=== PATIENT | female | born 1970 | race Caucasian/White ===

== ENCOUNTER 2019-04-23 14:10 | Outpatient (CLI) | payer OTHER, SELFPAY ==
--- NOTE | ~2019-04-23 | MMUS_ITS ---
EXAMINATION: MM screen LT diag RT w estela, US axilla RT, US breast RT limited HISTORY: Right axillary lump, pain for 2 weeks TECHNIQUE: ML, MLO and cc full field and right spot 3-D tomosynthesis images were performed and synth the [facility] 2-D images were generated. Rolled medial and rolled lateral craniocaudal views. CAD analysis was submitted and interpreted. High resolution upper outer quadrant right breast and right axillary ultr asound was performed. COMPARISON: None BREAST PARENCHYMAL COMPOSITION: The breasts are heterogeneously dense, which may obscure small masses . FINDINGS: MAMMOGRAPHIC FINDINGS: No suspicious mass or architectural distortion, malignant calcification, skin thickening or retractio n is detected. ULTRASOUND: Several right axillary lymph nodes are noted, measuring 7.7 x 3.8 x 6.6 mm, 8.0 x 7.0 x 7.5 mm and 13 .8 x 8.2 x 10.0 mm. The axillary lymph nodes are circumscribed, with relatively uniform thickness and echogenicity of the cortex. No suspicious right axillary or upper outer quadrant right breast mass i s detected sonographically. IMPRESSION: 1. No mammographic evidence of malignancy 2. Routine annual mammographic screening is recommended. If there is any clinically suspicious palpable mass or node, consider biopsy. BI-RADS Category 2: Benign finding(s). Reviewed, dictated and finalized at location A. ER OPERATOR IMPRESSION: 1. No mammographic evidence of malignancy 2. Routine annual mammographic screening is recommended. If there is any clinically suspicious palpable mass or node, consider biopsy. BI-RADS Category 2: Benign finding(s). IMPRESSION: 1. No mammographic evidence of malignancy 2. Routine annual mammographic screening is recommended. If there is any clinically suspicious palpable mass or node, consider biopsy. BI-RADS Category 2: Benign finding(s).
== END 2019-04-23 14:11 | disposition home or self-care (01) ==
PROVIDERS: PCP Internal Medicine; Visit Provider Internal Medicine
DX: R59.0 Localized enlarged lymph nodes (principal); Z12.31 Encounter for screening mammogram for malignant neoplasm of breast
CPT/HCPCS: 76642; 76882; 77063; 77065; 77067

== ENCOUNTER 2020-02-10 09:23 | Emergency (ER) | payer OTHER, SELFPAY ==
[2020-02-10 09:35] VITALS: BP 138/73; PULSE 65; RESP 12; TEMP 36.7; O2SAT 100
[2020-02-10 09:39] VITALS: BP 138/73; PULSE 65; RESP 12; TEMP 36.7; O2SAT 100
--- NOTE | 2020-02-10 09:41 | ED.GENADULT ---
HPI - General Adult General Chief complaint: Back Pain/Injury Stated complaint: Lower Back Pain Time Seen by Provider: 02/10/20 09:48 Source: patient and RN notes reviewed Mode of arrival: ambulatory Limitations: no limitations History of Present Illness HPI narrative: 49-year-old female presents with complaints of right lower back pain with right radiating leg pain for 1 day. Samantha says she arise on 02/09/2020 with right lower back pain that radiated to right buttocks, right lateral leg into anterior right thigh. RT leg with intermittent buckling. Housekeeping and gift wrapping prior to increase back pain. History of back pain and spinal surgery (L4-L5). She was prescribed a Medrol Dosepak per Telehealth doctor. Combination pill of Tylenol and Ibuprofen without relief. Denies new injuries or falls. Denies numbness or tingling. Denies fever or chills. No upper or lower extremity pain or weakness. Exacerbating factors consist of prolong standing, sitting, and bending. Denies nausea, vomiting, or abdominal pain. Tolerating po intake well. Denies unusual problems urinating or having a bowel movement, LBM this am per patient and normal for her. History of loose bowel movements. No flank pain or hematuria or dysuria. The patient reports she have not been diagnosed with COVID-19. The patient reports she is not waiting for the results of a COVID-19 lab test. The patient reports she do not have chills, weakness, or fatigue. The patient reports she do not have a new or worsening cough or shortness of breath. Denies chest pain. The patient reports she do not have any rhinorrhea, congestion, sore throat, loss of taste, and diarrhea. Denies recent traveling. Denies concerns for COVID-19 or exposures been home with limited outdoor exposure except for essential household needs, work, and return home. At this time, patient is not suspected of having COVID-19. Some parts of this dictation were generated by voice recognition software and may contain typographical and/or grammatical inaccuracies. Related Data Home Medications Medication Instructions Recorded Confirmed buspirone 10 mg PO BID 02/10/20 02/10/20 diltiazem HCl 120 mg PO DAILY 02/10/20 02/10/20 ergocalciferol (vitamin D2) 50,000 unit PO WEEKLY 02/10/20 02/10/20 [Vitamin D2] lorazepam 0.5 mg PO BID PRN 02/10/20 02/10/20 methylprednisolone 4 mg PO DIRECTED 02/10/20 02/10/20 metoprolol succinate 100 mg PO DAILY 02/10/20 02/10/20 venlafaxine 150 mg PO DAILY 02/10/20 02/10/20 Allergies Allergy/AdvReac Type Severity Reaction Status Date / Time acetaminophen AdvReac Hallucinati Verified 02/10/20 09:37 [From Tylenol-Codeine #3] ng codeine AdvReac Hallucinati Verified 02/10/20 09:37 [From Tylenol-Codeine #3] ng Review of Systems Review of Systems: Narrative: CONSTITUTIONAL: Denies fever, chills, sweats. EYES: Denies visual changes, redness, discharge. ENT: Denies rhinorrhea, congestion, sore throat, otalgia. CARDIOVASCULAR: Denies chest pain, palpitations, edema. RESPIRATORY: Denies dyspnea, wheezing, cough. GASTROINTESTINAL: Denies abdominal pain, nausea, vomiting, diarrhea. GENITOURINARY: Denies dysuria, hematuria, abnormal discharge. SKIN: Denies rash or itching. MUSCULOSKELETAL: Complains of right lower back pain that radiated to right buttocks, right lateral leg into anterior right thigh. Denies joint pain or myalgia. NEUROLOGIC: Denies numbness or focal weakness. PSYCHIATRIC: Denies anxiety or depression. All systems reviewed & are unremarkable except as noted in HPI and below PMFSH Past Medical History Medical History (Updated 02/10/20 @ 23:15 by SOCO Mccain) Anxiety delivery delivered Degenerative disc disease Diabetes Hypertension Loose bowel movement PVCs (premature ventricular contractions) Surgical History Surgical History (Updated 02/10/20 @ 10:17 by SOCO Mccain) H/O section X1, 1992 Hi
[2020-02-10] MEDS: KETOROLAC (*BKC) 60 MG/2 ML VIAL IM (10:08)
== END 2020-02-10 10:24 | disposition home or self-care (01) ==
PROVIDERS: Emergency Provider Nurse Practitioner Family; PCP Internal Medicine
DX: M54.41 Lumbago with sciatica, right side (principal); Z98.84 Bariatric surgery status; I10 Essential (primary) hypertension; E11.9 Type 2 diabetes mellitus without complications; F41.9 Anxiety disorder, unspecified
CPT/HCPCS: 96372; 99213; G0463; J1885

== ENCOUNTER → 2020-03-13 | Outpatient (CLI) | payer OTHER, SELFPAY ==
--- NOTE | ~2020-03-13 | MR_ITS ---
EXAMINATION: MR lumbar spine wo con DATE: 03/13/2020 14:48 INDICATION: Low back pain. Radiculopathy. TECHNIQUE: Magnetic resonance imaging (MRI) of the lumbar spine was performed without intravenous con trast. Sequences included sagittal T2-weighted FSE, sagittal T2-weighted FS FSE, sagittal T1-weighted FSE, and axial T2-weighted FSE. COMPARISON: 05/21/2017 FINDINGS: Alignment is normal. L4-L5 anterior and posterior spinal fusion with metallic magnetic field artifact associated with bone graft cages at the disc space and a left-sided vertical jamie and pedicle screw f ixation. Is also been a left-sided L4-L5 laminectomy. Vertebral body heights are normal. Unchanged la rge T1 hyperintense hemangiomas at L4 and S1. Mild to moderate disc height loss at L5-S1. Mild disc d esiccation and minimal disc height loss at L3-L4. The conus medullaris terminates at L2. There is nor mal signal in the caudal spinal cord. Paravertebral soft tissues are unremarkable. The following disc levels are specifically discussed: T12-L1: Disc is minimally bulging. There is mild bilateral facet joint osteoarthritis. There is no ne ural foraminal stenosis. There is no central canal stenosis. L1-L2: Disc is minimally bulging. There is mild to moderate bilateral facet joint osteoarthritis. The re is no neural foraminal stenosis. There is no central canal stenosis. L2-L3: Disc is minimally bulging. There is mild hypertrophy of the ligamentum flavum. There is mild to moderate bilateral facet joint osteoarthritis. There is no neural foraminal stenosis. There is min imal central canal stenosis. L3-L4: Disc is mildly bulging. There is hypertrophy of the ligamentum flavum. There is moderate bilat eral facet joint osteoarthritis. There is mild bilateral neural foraminal stenosis. There is mild eri tral canal stenosis. L4-L5: Discectomy and anterior fusion procedure. There is also been prior left-sided posterior spinal fusion procedure with vertical jamie and pedicle screw fixation. There is mild to moderate right facet joint osteoarthritis. There is mild bilateral neural foraminal stenosis. Assessment on the left is s omewhat limited by some spatial distortion resulting from the magnetic field artifact. There is no ce ntral canal stenosis with left posterior decompression. L5-S1: Annular fissure and asymmetric to the right mild disc bulge. There is moderate bilateral facet joint osteoarthritis. There is mild to moderate left and mild right neural foraminal stenosis. There is minimal central canal stenosis with mild narrowing of the left and right lateral recesses. IMPRESSION: 1. Negligible progression of mild to moderate lumbar spondylosis. Reviewed, dictated and finalized at location B. HOLE MACHINE OPERATOR
== END | disposition home or self-care (01) ==
DX: M47.27 Other spondylosis with radiculopathy, lumbosacral region (principal); M48.07 Spinal stenosis, lumbosacral region; M47.25 Other spondylosis with radiculopathy, thoracolumbar region; M48.05 Spinal stenosis, thoracolumbar region
CPT/HCPCS: 72148

== ENCOUNTER 2020-04-01 15:25 | Observation (INO) | payer OTHER, SELFPAY ==
--- NOTE | ~2020-04-01 | CT_ITS ---
EXAMINATION: CT abdomen pelvis w con DATE: 04/01/2020 17:42 INDICATION: Epigastric pain TECHNIQUE: Computed tomography (CT) of the abdomen and pelvis was performed with 100 mL Omnipaque-350 intravenous contrast. Automated exposure control and iterative reconstruction technique were employe d. The dose-length product was 423.29 mGy-cm. COMPARISON: None FINDINGS: Lung bases are clear. Heart size is normal. No pericardial or pleural effusion. Postoperative change of prior gastric bypass procedure. Cholecystectomy clips the gallbladder fossa. 6 mm low-attenuation likely cyst or hemangioma at the caudal aspect of the right hepatic lobe. Spleen, pancreas and bilate ral adrenal glands are normal. Peripheral subcentimeter cysts at the bilateral kidneys. Normal append ix. No bowel obstruction. Moderate to large amount of stool scattered throughout the colon. Bladder, anteverted uterus and bilateral adnexa are unremarkable. No free intraperitoneal gas or fluid. No pat hologically enlarged abdominal or pelvic lymphadenopathy. Instrumented anterior and posterior spinal fusion at L4-L5 with interbody bone graft cages and left-sided vertical jamie and pedicle screw fixatio n. IMPRESSION: 1. No acute intra-abdominal/pelvic process. Reviewed, dictated and finalized at location A. CADENCE ANALYST
[2020-04-01 15:40] VITALS: BP 130/75; PULSE 60; RESP 18; TEMP 36.8; O2SAT 100
--- NOTE | 2020-04-01 15:43 | ED.ABDPAIN ---
HPI - Abdominal Pain General Chief Complaint: Abdominal Pain Stated Complaint: abdominal pain Source: patient and RN notes reviewed Mode of arrival: ambulatory Limitations: no limitations History of Present Illness MD elicited complaint: abdominal pain Pertinent past history: none Onset (ago): day(s) (1) Pain Consistency: intermittent Location: epigastric Severity: moderate Quality: sharp Radiation: none Migration to: no migration Exacerbating factors: eating Relieving factors: nothing Associated symptoms: denies other symptoms Treatments prior to arrival: other (tylenol) Related Data Patient : No Home Medications Medication Instructions Recorded Confirmed buspirone 10 mg PO BID 02/10/20 04/01/20 diltiazem HCl 120 mg PO DAILY 02/10/20 04/01/20 metoprolol succinate 150 mg PO DAILY 02/10/20 04/01/20 venlafaxine 150 mg PO DAILY 02/10/20 04/01/20 Allergies Allergy/AdvReac Type Severity Reaction Status Date / Time codeine AdvReac Hallucinati Verified 02/10/20 09:37 [From Tylenol-Codeine #3] ng Review of Systems Review of Systems: All systems reviewed & are unremarkable except as noted in HPI and below Constitutional: Constitutional: Denies chills and Denies fever(s) ENT: Reports system reviewed and no additional complaints, except as documented Cardiovascular: Cardiovascular: Reports no additional cardiovascular complaints Respiratory: Respiratory: Reports no additional respiratory complaints Gastrointestinal: Gastrointestinal: Reports as per HPI, Reports diarrhea ( loose stools only), Reports nausea and Denies vomiting Musculoskeletal: Musculoskeletal: Reports no additional musculoskeletal complaints Neurologic: Reports system reviewed and no additional complaints, except as documented Psychiatric: Psychiatric: Reports no additional psychiatric complaints Endocrine: Endocrine: Reports no additional endocrine complaints [facility] Past Medical History Medical History Anxiety delivery delivered Degenerative disc disease Diabetes Hypertension Loose bowel movement PVCs (premature ventricular contractions) Surgical History Surgical History H/O section X1, 1992 History of cholecystectomy History of endometrial ablation History of gastric bypass Due to obesity and comorbidity issues History of spinal surgery L4-L5 in 2015 Family History Family History Father Hypertension Heart disease Diabetes mellitus Black lung disease Worked in the [employer] Smoker Mother Asthma Atrial fibrillation Social History Social History Smoking status: Never smoker Tobacco type: cigarettes Second hand tobacco smoke exposure: No Alcohol intake: former Substance use: never Substance use type: marijuana Other substance usage details: rarely Additional living arrangements comments: significant other Gender identity (if verbalized by the patient): Female Sexual Orientation (if Verbalized by the Patient): Straight or Heterosexual Spiritual care concerns: No Exam Const: General: healthy appearing and no acute distress Nutritional Appearance: well nourished Orientation/consciousness: patient oriented x3 Other: female nurse in room during examination. HENMT: Head: normal to inspection Ears: external ears normal Eyes: Conjunctivae: conjunctivae normal Pupils: Equal, round and reactive pupils present EOM: EOMs intact bilaterally Neck: Neck: normal visual inspection Resp: Effort & Inspection: normal respiratory effort Auscultation: clear to auscultation bilaterally Cardio: Rate: regular rate Rhythm: regular rhythm GI: GI Palp: Yes Soft to palpation, Yes Tenderness to palpation present (GI) ( Epigastric moderate), No Guarding due t
[2020-04-01] MEDS: MAG HYDROX/ALUMINUM HYD/SIMETH 30 ML, PHENobarb/HYOSCY/ATROPINE/SCOP 32.4 MG, LIDOCAINE... PO (16:22)
--- NOTE | 2020-04-01 16:41 | PC.NURSE ---
pt reports no relief from gi cocktail. edp aware.
[2020-04-01] MEDS: PANTOPRAZOLE SODIUM IV 40 MG VIAL IV PUSH (16:50)
[2020-04-01 17:02] LABS: Basophils Absolute Auto 0.06 K/mm3 (0.00-0.10); Basophils Percent Auto 0.6 % (0.0-1.0); Eosinophils Absolute Auto 0.13 K/mm3 (0.02-0.50); Eosinophils Percent Auto 1.2 % (1.0-6.0); Hematocrit 35.9 % (35.0-49.0); Hemoglobin 12.4 g/dL (12.0-15.0); Immature Granulocyte Absolute 0.04 K/mm3 (0.00-0.00); Immature Granulocyte Percent A 0.4 % (0.0-0.0); Lymphocytes Absolute Auto 3.38 K/mm3 (1.10-4.50); Lymphocytes Percent Auto 31.1 % (18.0-42.0); Mean Corpuscular HGB Conc 34.5 g/dL (32.0-36.0); Mean Corpuscular Hemoglobin 29.7 pg (27.0-31.0); Mean Corpuscular Volume 85.9 fL (78.0-102.0); Mean Platelet Volume 8.9 fl (9.2-11.8); Monocytes Percent Auto 6.4 % (2.0-11.0); Neutrophils Absolute Auto 6.6 K/mm3 (1.7-7.2); Neutrophils Percent Auto 60.3 % (50.0-70.0); Platelet Count Result 306 K/mm3 (150-420); Red Blood Count 4.18 M/mm3 (4.20-5.40); Red Cell Distribution Width 12.1 % (11.6-14.4); White Blood Count 10.9 K/mm3 (4.8-10.8)
[2020-04-01 17:17] LABS: Alanine Aminotransferase 189 U/L (14-59); Albumin Level 3.8 g/dL (3.4-5.0); Alkaline Phosphatase 90 U/L (46-116); Anion Gap 8 mmol/L (8-16); Aspartate Amino Transferase 223 U/L (15-37); Bilirubin,Total 0.5 mg/dL (0.00-1.00); Blood Urea Nitrogen 19 mg/dL (7-18); Calcium 9.1 mg/dL (8.5-10.1); Carbon Dioxide 29 mmol/L (21-32); Chloride 104 mmol/L (98-108); Estimated CRCL calculation 81 ml/min; Estimated Glomerular Filt Rate > 60; Glucose 99 mg/dL (70-99); Lipase 1017 U/L (73-393); Osmolality Calculated 294 mOsm/kg (285-295); Potassium 4.5 mmol/L (3.5-5.1); Sodium 141 mmol/L (136-145)
[2020-04-01 17:20] LABS: Lactic Acid Reflex 1.2 mmol/L (0.4-2.0)
[2020-04-01 17:29] LABS: SPREG INTERNAL CONTROL Positive; Serum Qual hCG Negative
[2020-04-01 17:42] LABS: CRP 0.3 mg/dL (0.0-0.9)
[2020-04-01 17:43] LABS: Amylase 85 U/L (25-115)
[2020-04-01 17:47] LABS: Triglycerides 169 mg/dL (0-150)
[2020-04-01] MEDS: DEXTROSE 5%/0.45% SOD CHL 1,000 ML 150 ML IV CONT ×2 (17:50→23:58)
[2020-04-01 17:54] VITALS: BP 112/59; PULSE 68; RESP 16; O2SAT 98
[2020-04-01 18:22] LABS: Add Urine Microscopic? YES; Appearance Urine Clear (Clear); Bilirubin Urine Negative (Negative); Blood Urine Negative (Negative); Color Urine Yellow (Yellow); Glucose Urine UA Negative (Negative); Ketones Urine Negative (Negative); Leukocyte Esterase Ur Negative LEU/UL (Negative); Nitrate Urine Negative (Negative); Protein Urine Negative (Negative)
[2020-04-01 18:27] LABS: Squamous Epithelial Cell Urine Few /hpf (Few)
[2020-04-01 19:00] VITALS: BMI 26.4
--- NOTE | 2020-04-01 19:00 | ADMGEN ---
This patient, Samantha Mosqueda, was admitted to 2nd Floor Room 205-1. Patient oriented to hospital policies and general routines including ID bracelet, bed and alarms, visiting hours, pain management, procedures, bathroom and other care routines, personal items, smoking policy, room service/diet, and visiting hours. Information on how to activate the Rapid Response Team has been discussed. Patient are encouraged to report perceived risks to care and to ask questions if they do not understand what they are told or what they should do.
[2020-04-01] MEDS: MORPHINE SULFATE (*CRX) 2 MG/ML INJ IV PUSH ×2 (19:15→23:54)
[2020-04-01 22:59] VITALS: BP 116/71; PULSE 61; RESP 18; TEMP 37; O2SAT 99
[2020-04-02] VITALS: BP 98/63; PULSE 54; RESP 18; TEMP 36.2; O2SAT 98
[2020-04-02] MEDS: MORPHINE SULFATE (*CRX) 2 MG/ML INJ IV PUSH ×2 (04:19→12:46)
[2020-04-02 05:47] LABS: Alanine Aminotransferase 435 U/L (14-59); Albumin Level 3.3 g/dL (3.4-5.0); Alkaline Phosphatase 105 U/L (46-116); Anion Gap 8 mmol/L (8-16); Aspartate Amino Transferase 269 U/L (15-37); Bilirubin,Total 0.6 mg/dL (0.00-1.00); Blood Urea Nitrogen 12 mg/dL (7-18); Calcium 8.4 mg/dL (8.5-10.1); Carbon Dioxide 30 mmol/L (21-32); Chloride 104 mmol/L (98-108); Estimated CRCL calculation 95 ml/min; Estimated Glomerular Filt Rate > 60; Glucose 101 mg/dL (70-99); Lipase 131 U/L (73-393); Osmolality Calculated 293 mOsm/kg (285-295); Potassium 3.9 mmol/L (3.5-5.1); Sodium 142 mmol/L (136-145); Total Protein 6.2 g/dL (6.4-8.2)
[2020-04-02] MEDS: DEXTROSE 5%/0.45% SOD CHL 1,000 ML 150 ML IV CONT ×3 (06:19→19:09)
[2020-04-02 07:49] VITALS: BP 102/52; PULSE 50; RESP 16; RESP 18; TEMP 36.4; O2SAT 99
--- NOTE | 2020-04-02 08:00 | PM.IMHP ---
H&P: HPI History of Present Illness Date/Time: 04/02/20 08:00 <KAREL Byers - Last Filed: 04/02/20 12:26> Chief Complaint: Abdominal pain <KAREL Byers - Last Filed: 04/02/20 12:26> Narrative: Samantha Mosqueda is a 50 year old female female that presented to urgent care with epigastric pain. According to patient she has been having intermittent abdominal pain for several weeks that intensified on Friday and became unbearable Friday. Patient notes that she did go to a restaurant with her and have fried chicken and fried pickles at approximately 12:00 and started developing pain since 2:00. She also had nausea no vomiting she noted that she has a history of soft stool but her stool became diarrhea. Patient has not had any past pancreatitis. On admission her WBCs was 10.9,AST 223, ALT 189, triglycerides 169, lipase 1017 all other labs within normal limits, CT of the abdomen and pelvis no acute findings. This a.m. patient notes that her abdominal pain has improved, her nausea has also improved. We will advance her diet to a clear liquid diet today to see how well she tolerates that and do a repeat lipase. The patient denies SOB, CP, palpitation, extremity numbness, lightheadedness, dizziness, constipation, diarrhea, chills, or fever. Disposition: Patient will discharge home with This document was completed by using [employer] Direct speech recognition software, therefore generation technician variances may occur. Despite proofreading, typographical errors may also occur. <KAREL Byers - Last Filed: 04/02/20 12:26> Review of Systems Review of Systems: All systems reviewed & are unremarkable except as noted in HPI and below (10 point system review) <KAREL Byers - Last Filed: 04/02/20 12:26> ON LICENSE OF [facility] Past Medical History Medical History: Medical History (Updated 04/02/20 @ 08:09 by KAREL Byers) Anxiety Degenerative disc disease Diabetes Hypertension Loose bowel movement PVCs (premature ventricular contractions) <KAREL Byers - Last Filed: 04/02/20 12:26> Surgical History Surgical History: Surgical History H/O section X1, 1992 History of cholecystectomy History of endometrial ablation History of gastric bypass Due to obesity and comorbidity issues History of spinal surgery L4-L5 in 2015 <KAREL Byers - Last Filed: 04/02/20 12:26> Family History Family History: Family History Father Hypertension Heart disease Diabetes mellitus Black lung disease Worked in the [employer] Smoker Mother Asthma Atrial fibrillation <KAREL Byers - Last Filed: 04/02/20 12:26> Social History Social History: Social History Smoking status: Never smoker Tobacco type: cigarettes Second hand tobacco smoke exposure: No Alcohol intake: former Substance use: never Substance use type: marijuana Other substance usage details: rarely Additional living arrangements comments: significant other Gender identity (if verbalized by the patient): Female Sexual Orientation (if Verbalized by the Patient): Straight or Heterosexual Spiritual care concerns: No <KAREL Byers - Last Filed: 04/02/20 12:26> Meds Home Medications and Allergies Home medications: Home Medications Medication Instructions Recorded Confirmed Type buspirone 10 mg PO BID 02/10/20 04/01/20 History diltiazem HCl 120 mg PO DAILY 02/10/20 04/01/20 History metoprolol succinate 150 mg PO DAILY 02/10/20 04/01/20 History venlafaxine 150 mg PO DAILY 02/10/20 04/01/20 History <KAREL Byers - Last Filed: 04/02/20 12:26> Allergies/Adverse reactions: Allergies Allergy/AdvReac Type Severity Reaction Status Luis Felipe
[2020-04-02] MEDS: VENLAFAXINE HCL XR 75 MG CAP.ER.24H 150 MG PO (08:45)
[2020-04-02] MEDS: busPIRone HCL 5 MG TABLET 10 MG PO ×2 (08:45→17:16)
[2020-04-02 08:50] LABS: Hematocrit 33.8 % (35.0-49.0); Hemoglobin 11.6 g/dL (12.0-15.0); Mean Corpuscular HGB Conc 34.3 g/dL (32.0-36.0); Mean Corpuscular Hemoglobin 29.7 pg (27.0-31.0); Mean Corpuscular Volume 86.7 fL (78.0-102.0); Mean Platelet Volume 9.6 fl (9.2-11.8); Platelet Count Result 284 K/mm3 (150-420); Red Cell Distribution Width 12.5 % (11.6-14.4); White Blood Count 6.2 K/mm3 (4.8-10.8)
[2020-04-02] MEDS: HYDROcodone/acetaminophen (*CRX) 5-325 MG TABLET 1 TAB PO ×2 (09:46→18:37)
[2020-04-02] MEDS: PANTOPRAZOLE SOD SESQUIHYDRATE 20 MG TAB PO (09:47)
[2020-04-02 16:45] VITALS: BP 118/70; PULSE 61; RESP 18; TEMP 37; O2SAT 99
--- NOTE | 2020-04-02 22:00 | PC.NURSE ---
Patient reports epigastric pain is down to a 3 @ this time and denies any other pain/complaints/needs. Call light in reach.
[2020-04-02 23:44] VITALS: BP 105/62; PULSE 58; RESP 18; TEMP 36.3; O2SAT 98
[2020-04-03] MEDS: DEXTROSE 5%/0.45% SOD CHL 1,000 ML 150 ML IV CONT (01:35)
--- NOTE | 2020-04-03 01:40 | PC.NURSE ---
Patient says her epigastric pain is almost completely gone, rating it a 1 @ this time. Denies need for pain medicine. Denies any other pain/complaints/needs @ this time. Call light in reach.
[2020-04-03 05:28] LABS: Hemoglobin 11.4 g/dL (12.0-15.0); Mean Corpuscular HGB Conc 34.5 g/dL (32.0-36.0); Mean Corpuscular Hemoglobin 29.8 pg (27.0-31.0); Mean Corpuscular Volume 86.2 fL (78.0-102.0); Mean Platelet Volume 8.8 fl (9.2-11.8); Platelet Count Result 245 K/mm3 (150-420); Red Blood Count 3.83 M/mm3 (4.20-5.40); Red Cell Distribution Width 12.1 % (11.6-14.4); White Blood Count 5.2 K/mm3 (4.8-10.8)
[2020-04-03 05:57] LABS: Anion Gap 5 mmol/L (8-16); Blood Urea Nitrogen 5 mg/dL (7-18); Carbon Dioxide 31 mmol/L (21-32); Chloride 106 mmol/L (98-108); Estimated CRCL calculation 106 ml/min; Estimated Glomerular Filt Rate > 60; Lipase 91 U/L (73-393); Sodium 142 mmol/L (136-145)
[2020-04-03 05:58] LABS: Alanine Aminotransferase 274 U/L (14-59); Albumin Level 3.2 g/dL (3.4-5.0); Aspartate Amino Transferase 93 U/L (15-37); Bilirubin,Total 0.6 mg/dL (0.00-1.00); Calcium 8.4 mg/dL (8.5-10.1); Glucose 106 mg/dL (70-99); Osmolality Calculated 291 mOsm/kg (285-295)
[2020-04-03 05:59] LABS: Alkaline Phosphatase 94 U/L (46-116)
[2020-04-03 07:47] VITALS: BP 134/57; PULSE 59; RESP 18; TEMP 36.7; O2SAT 100
--- NOTE | 2020-04-03 08:07 | P.DS_ITS ---
DS: Admitting Diagnosis Admitting Diagnosis Admitting Diagnosis: Pancreatitis <Edenilson CrainKAREL Amaral - Last Filed: 04/03/20 10:18> DS: Discharge Diagnosis Discharge Diagnosis (1) Elevated liver enzymes: Code(s): R74.8 - Abnormal levels of other serum enzymes <Edenilson DoeKAREL - Last Filed: 04/03/20 10:18> Status: Acute <Edenilson DoeKAREL - Last Filed: 04/03/20 10:18> Assessment and Plan: * [id number]-->269-->93, [id number]-->435-->274, improving * Avoid hepatotoxic agents * Will need to follow-up with her primary care physician <KATHERINE Byers - Last Filed: 04/03/20 10:18> (2) Diabetes: Code(s): E11.9 - Type 2 diabetes mellitus without complications <KAREL Byers - Last Filed: 04/03/20 10:18> Status: Inactive <Edenilson CrainKAREL Amaral - Last Filed: 04/03/20 10:18> Assessment and Plan: * Blood sugar stable * It does not appear that patient is on any home medication * <Edenilson ParasKAREL Amaral - Last Filed: 04/03/20 10:18> (3) PVCs (premature ventricular contractions): Code(s): I49.3 - Ventricular premature depolarization <KATHERINE Byers - Last Filed: 04/03/20 10:18> Status: Inactive <Edenilson ParasKAERL Amaral - Last Filed: 04/03/20 10:18> Assessment and Plan: * Stable * Continue Cardizem did decrease metoprolol due to bradycardia and soft blood pressure * Follow-up primary care physician <KAREL Byers - Last Filed: 04/03/20 10:18> (4) Loose bowel movement: Code(s): R19.5 - Other fecal abnormalities <KAREL Byers - Last Filed: 04/03/20 10:18> Status: Inactive <KAREL Byers - Last Filed: 04/03/20 10:18> Assessment and Plan: * Patient has a history of loose bowel <AnantKAREL Gifford - Last Filed: 04/03/20 10:18> (5) Hypertension: Code(s): I10 - Essential (primary) hypertension <Anantrobb ParasKAREL Amaral - Last Filed: 04/03/20 10:18> Status: Inactive <SOCO ByersFosterAakash - Last Filed: 04/03/20 10:18> Assessment and Plan: * Blood pressure stable patient did not receive Cardizem or metoprolol as inpatient * Metoprolol and Cardizem on hold for now due to a soft blood pressure and bradycardia * Patient discharged home with decrease in metoprolol patient discharged with 37.5 mg instead of 150 mg daily * Patient instructed to take her blood pressure reading and document and give results to primary care physician for further adjustment * <KAREL Byers - Last Filed: 04/03/20 10:18> (6) Degenerative disc disease: Status: Inactive <SOCO ByersFosterAakash - Last Filed: 04/03/20 10:18> Assessment and Plan: * Continue pain medication <SOCO ByersFosterAakash - Last Filed: 04/03/20 10:18> (7) Anxiety: Code(s): F41.9 - Anxiety disorder, unspecified <KAREL Byers - Last Filed: 04/03/20 10:18> Status: Inactive <SOCO ByersFosterAakash - Last Filed: 04/03/20 10:18> Assessment and Plan: * Continue venlafaxine and Wellbutrin <SOCO ByersFosterAakash - Last Filed: 04/03/20 10:18> DS: Summary Hospital Course Reason for hospitalization: Pancreatitis <KAREL Byers - Last Filed: 04/03/20 10:18> Hospital Course: Samantha Mosqueda is a 50 year old female female that presented to ED with epigastric pain. According to patient she had intermittent abdominal pain for several weeks that intensified on Friday and became
--- NOTE | 2020-04-03 08:07 | PM.DS ---
DS: Admitting Diagnosis Admitting Diagnosis Admitting Diagnosis: Pancreatitis <Edenilson CrainKAREL Amaral - Last Filed: 04/03/20 10:18> DS: Discharge Diagnosis Discharge Diagnosis (1) Elevated liver enzymes: Code(s): R74.8 - Abnormal levels of other serum enzymes <Edenilson DoeKAREL - Last Filed: 04/03/20 10:18> Status: Acute <Edenilson DoeKAREL - Last Filed: 04/03/20 10:18> Assessment and Plan: [id number]-->269-->93, [id number]-->435-->274, improving Avoid hepatotoxic agents Will need to follow-up with her primary care physician <KAREL Byers - Last Filed: 04/03/20 10:18> (2) Diabetes: Code(s): E11.9 - Type 2 diabetes mellitus without complications <KAREL Byers - Last Filed: 04/03/20 10:18> Status: Inactive <Anantrobb CrainKAREL Amaral - Last Filed: 04/03/20 10:18> Assessment and Plan: Blood sugar stable It does not appear that patient is on any home medication <KAREL Byers - Last Filed: 04/03/20 10:18> (3) PVCs (premature ventricular contractions): Code(s): I49.3 - Ventricular premature depolarization <KAREL Byers - Last Filed: 04/03/20 10:18> Status: Inactive <Edenilson ParasKAREL Amaral - Last Filed: 04/03/20 10:18> Assessment and Plan: Stable Continue Cardizem did decrease metoprolol due to bradycardia and soft blood pressure Follow-up primary care physician <KAREL Byers - Last Filed: 04/03/20 10:18> (4) Loose bowel movement: Code(s): R19.5 - Other fecal abnormalities <KAREL Byers - Last Filed: 04/03/20 10:18> Status: Inactive <KAREL Byers - Last Filed: 04/03/20 10:18> Assessment and Plan: Patient has a history of loose bowel <Edenilson Doe KAREL - Last Filed: 04/03/20 10:18> (5) Hypertension: Code(s): I10 - Essential (primary) hypertension <Edenilson Doe KAREL - Last Filed: 04/03/20 10:18> Status: Inactive <Edenilson Doe KAREL - Last Filed: 04/03/20 10:18> Assessment and Plan: Blood pressure stable patient did not receive Cardizem or metoprolol as inpatient Metoprolol and Cardizem on hold for now due to a soft blood pressure and bradycardia Patient discharged home with decrease in metoprolol patient discharged with 37.5 mg instead of 150 mg daily Patient instructed to take her blood pressure reading and document and give results to primary care physician for further adjustment <Edenilson Doe KAREL - Last Filed: 04/03/20 10:18> (6) Degenerative disc disease: Status: Inactive <Edenilson CrainJacinto Doe KAREL - Last Filed: 04/03/20 10:18> Assessment and Plan: Continue pain medication <Edenilson Doe KAREL - Last Filed: 04/03/20 10:18> (7) Anxiety: Code(s): F41.9 - Anxiety disorder, unspecified <Edenilson Doe KAREL - Last Filed: 04/03/20 10:18> Status: Inactive <Edenilson CrainJacinto Doe KAREL - Last Filed: 04/03/20 10:18> Assessment and Plan: Continue venlafaxine and Wellbutrin <Edenilson CrainJacinto Doe KAREL - Last Filed: 04/03/20 10:18> DS: Summary Hospital Course Reason for hospitalization: Pancreatitis <Edenilson Rajput Nader KAREL - Last Filed: 04/03/20 10:18> Hospital Course: Samantha Mosqueda is a 50 year old female female that presented to ED with epigastric pain. According to patient she had intermittent abdominal pain for several weeks that intensified on Friday and became unbearable Friday. Patient notes that she did go to a restaurant with her and had fried chicken and fried pickles at approximately 12:00 and started developing abdominal pain at approximately 2:00. She also had nausea no vomiting she noted that she has a history of soft stool but her stool became diarrhea. Patient has not had any past pancreatitis. On admission her
[2020-04-03] MEDS: VENLAFAXINE HCL XR 75 MG CAP.ER.24H 150 MG PO (08:53)
[2020-04-03] MEDS: PANTOPRAZOLE SOD SESQUIHYDRATE 20 MG TAB PO (08:54)
[2020-04-03] MEDS: busPIRone HCL 5 MG TABLET 10 MG PO (08:54)
--- NOTE | 2020-04-07 13:56 | PC.NURSE ---
Pt states she received and understood her discharge instructions. She also states the FILLING ROOM OPERATOR, Edenilson, was very good and the nurses took excellent care of me .
== END 2020-04-03 10:20 | disposition home or self-care (01) ==
LOC: CHSED 18:32 → CHS2ND 04-03 07:27
PROVIDERS: Nurse Practitioner; Admitting Provider Emergency Medicine; Emergency Provider Emergency Medicine; PCP Internal Medicine; Visit Provider Emergency Medicine
DX: K85.90 Acute pancreatitis without necrosis or infection, unspecified (principal); F41.9 Anxiety disorder, unspecified; E11.9 Type 2 diabetes mellitus without complications; I10 Essential (primary) hypertension; Z90.49 Acquired absence of other specified parts of digestive tract; Z98.84 Bariatric surgery status; R19.5 Other fecal abnormalities
CPT/HCPCS: 36415; 74177; 80053; 81001; 82150; 83605; 83690; 84478; 84703; 85025; 85027; 86140; 96360; 96361; 96374; 96375; 96376; 99285; A9270; C9113; G0378; J2270; Q9967

== ENCOUNTER 2020-04-10 07:49 | Outpatient (CLI) | payer OTHER, SELFPAY ==
[2020-04-10 08:34] LABS: Alanine Aminotransferase 64 U/L (14-59); Albumin Level 3.9 g/dL (3.4-5.0); Alkaline Phosphatase 83 U/L (46-116); Anion Gap 9 mmol/L (8-16); Aspartate Amino Transferase 15 U/L (15-37); Bilirubin,Total 0.7 mg/dL (0.00-1.00); Blood Urea Nitrogen 17 mg/dL (7-18); Carbon Dioxide 29 mmol/L (21-32); Chloride 105 mmol/L (98-108); Estimated Glomerular Filt Rate > 60; Glucose 92 mg/dL (70-99); Osmolality Calculated 297 mOsm/kg (285-295); Potassium 4.4 mmol/L (3.5-5.1); Sodium 143 mmol/L (136-145); Total Protein 7.2 g/dL (6.4-8.2)
== END 2020-04-10 07:50 | disposition home or self-care (01) ==
LOC: CHSLAB 07:50
PROVIDERS: PCP Internal Medicine; Visit Provider Nurse Practitioner
DX: R74.8 Abnormal levels of other serum enzymes (principal)
CPT/HCPCS: 36415; 80053

== ENCOUNTER 2022-05-24 08:59 | Outpatient (CLI) | payer OTHER, SELFPAY ==
--- NOTE | 2022-06-24 20:29 | WPDHOLTEREM ---
Holter/Event Monitor Holter/Event Monitor Date of procedure: 05/24/22 Holter/Event Procedure: Event Monitor Indications: Palpitations Conclusion: 1. 30 day event monitor between 05/24/22-06/22/22. This is an auto-triggered and symptom triggered monitor. There are 6 available transmissions for analysis. 2. Underlying rhythm is sinus rhythm. HR range 57-139 bpm. 3. No supraventricular or ventricular arrhythmias. 4. No significant pauses greater than 2 seconds. 5. No symptoms available for correlation.
== END 2022-05-24 09:00 | disposition home or self-care (01) ==
PROVIDERS: PCP Internal Medicine; Visit Provider Internal Medicine
DX: R00.2 Palpitations (principal)
CPT/HCPCS: 93270

== ENCOUNTER → 2022-06-06 07:58 | Outpatient (CLI) | payer OTHER, SELFPAY ==
--- NOTE | ~2022-06-06 | CT_ITS ---
EXAMINATION: CT abdomen pelvis w con DATE: 06/06/2022 08:44 INDICATION: Right lower quadrant abdominal pain for 3 months. Constipation. TECHNIQUE: Computed tomography (CT) of the abdomen and pelvis was performed with 100 CC Omnipaque 350 intravenous contrast. Automated exposure control and iterative reconstruction technique were employe d. Exam dose: 1122.44 mGy-cm total exam DLP. COMPARISON: April 01, 2020 CT abdomen pelvis FINDINGS: The lung bases are clear. Normal heart size. No pericardial or pleural effusion. Status post cholecystectomy Status post gastric bypass surgery. Approximately 5 mm lower right hepatic lobe probable cyst. The liver is otherwise unremarkable. Rachelle l splenic size. No pancreatic mass lesion or calcification. No bile duct or pancreatic duct dilatation. Normal morphology of the adrenal glands. 9 mm left renal cortical cyst. 11 mm and 2.5 mm millimeter right renal cortical cysts. No urinary tract calculus or hydroureteronephrosis. Normal caliber of the abdominal aorta. No intraperitoneal or retroperitoneal or pelvic mass lesion or adenopathy or ascites. The uterus, adnexal areas and urinary bladder are unremarkable. Normal appendix. No bowel obstruction, bowel wall thickening, pneumatosis or intraperitoneal free air . Small fat-containing umbilical hernia. L4 5K devices and left-sided L4 and L5 pedicle screws/jamie are again noted. Moderately prominent degen erative disc disease at L5-S1. No suspicious osteolytic or osteoblastic lesions. IMPRESSION: Status post cholecystectomy Status post gastric bypass surgery Small right hepatic probable cyst Bilateral renal cysts Normal appendix L4-5 interbody and left posterior surgical fusion Reviewed, dictated and finalized at [facility]. Reviewed, dictated and finalized at [facility].
== END ==
PROVIDERS: PCP Internal Medicine; Visit Provider Nurse Practitioner Family
DX: R10.31 Right lower quadrant pain (principal); Z98.84 Bariatric surgery status; N28.1 Cyst of kidney, acquired; Z98.1 Arthrodesis status; Z90.49 Acquired absence of other specified parts of digestive tract
CPT/HCPCS: 74177; Q9967

== ENCOUNTER 2022-07-06 14:47 | Emergency (ER) | payer OTHER, SELFPAY ==
--- NOTE | 2022-07-06 14:54 | ED.BACK ---
HPI - Back Pain/Injury General Chief Complaint: Back Pain/Injury Stated Complaint: BACK PAIN/SPAMS Time Seen by Provider: 07/06/22 14:55 Source: patient and RN notes reviewed History of Present Illness HPI Narrative: Patient is a 52-year-old female presents to urgent care with complaints of back pain and back spasms for the last week. Patient states that she flew on a plane and then grabbed her luggage off the luggage rack in an awkward position causing her back pain to flare up. Patient does have an L4 fusion and has chronic back pain. Patient states that she typically gets resolution with Flexeril but is out of her medication. Patient also reports of a pinched nerve in the neck. No other acute complaints. No acute distress noted. Patient aware of the plan of care. Some parts of this dictation were generated by voice recognition software and may contain typographical and/or grammatical inaccuracies. Related Data Home Medications Medication Instructions Recorded Confirmed diltiazem HCl 120 mg 120 mg PO DAILY 02/10/20 12/01/20 capsule,extended release 24 hr venlafaxine 150 mg 150 mg PO DAILY 02/10/20 12/01/20 capsule,extended release 24 hr bupropion HCl 150 mg 24 hr tablet, 150 mg PO DAILY 12/01/20 12/01/20 extended release lorazepam 0.5 mg tablet 0.5 mg PO DAILY 12/01/20 12/01/20 metoprolol tartrate 37.5 mg tablet 100 mg PO DAILY 12/01/20 12/01/20 Allergies Allergy/AdvReac Type Severity Reaction Status Date / Time codeine AdvReac Hallucinati Verified 07/06/22 14:57 [From Tylenol-Codeine #3] ng Review of Systems Review of Systems: CONSTITUTIONAL: Denies fever, chills, or sweats. EYES: Denies visual changes, redness, or discharge. ENT: Denies rhinorrhea, congestion, sore throat, or otalgia. Reports of a pinched nerve to the right neck CARDIOVASCULAR: Denies chest pain, palpitations, or edema. RESPIRATORY: Denies cough or dyspnea. GASTROINTESTINAL: Denies abdominal pain, nausea, vomiting, or diarrhea. GENITOURINARY: Denies dysuria or hematuria. SKIN: Denies rash or itching. MUSCULOSKELETAL: Reports of acute on chronic low back pain NEUROLOGIC: Denies headache, numbness, or weakness. All other systems reviewed are negative, except as documented in HPI. [facility] Past Medical History Medical History (Updated 07/06/22 @ 15:07 by SOCO Gavin) Anxiety Degenerative disc disease Diabetes Hypertension Loose bowel movement PVCs (premature ventricular contractions) Surgical History Surgical History H/O section X1, 1993 History of cholecystectomy History of endometrial ablation History of gastric bypass Due to obesity and comorbidity issues History of spinal surgery L4-L5 in 2015 Family History Family History Father Hypertension Heart disease Diabetes mellitus Black lung disease Worked in the [employer] Smoker Mother Asthma Atrial fibrillation Social History Social History Smoking status: Never smoker Tobacco type: cigarettes Second hand tobacco smoke exposure: No Alcohol intake: current Drinks per week: 1 Alcohol use details: occasional Substance use: current Substance use type: marijuana Other substance usage details: rarely Last use: 11-24-20 Living arrangements: with family Additional living arrangements comments: significant other Occupation/Education: occupation Gender identity (if verbalized by the patient): Female Sexual Orientation (if Verbalized by the Patient): Straight or Heterosexual Spiritual care concerns: No Comments At the time of my signature, I reviewed and agree with the nursing past medical, surgical, social, and family history. There is no relevant family history pertinent to the patient complaint. Exam Narrative: GENERAL: This is a we
[2022-07-06 14:56] VITALS: BP 124/75; PULSE 73; RESP 16; TEMP 36.6; O2SAT 98
[2022-07-06 14:58] VITALS: BP 124/75; PULSE 73; RESP 16; TEMP 36.6; O2SAT 98
== END 2022-07-06 15:12 | disposition home or self-care (01) ==
PROVIDERS: Emergency Provider Nurse Practitioner Family; PCP Internal Medicine
DX: M54.12 Radiculopathy, cervical region (principal); S39.012A Strain of muscle, fascia and tendon of lower back, initial encounter; X50.9XXA Other and unspecified overexertion or strenuous movements or postures, initial encounter; E11.9 Type 2 diabetes mellitus without complications; I10 Essential (primary) hypertension; F41.9 Anxiety disorder, unspecified
CPT/HCPCS: 99213; G0463

== ENCOUNTER 2023-09-08 14:08 | Outpatient (CLI) | payer OTHER, SELFPAY ==
--- NOTE | ~2023-09-08 | US_ITS ---
RIGHT LOWER EXTREMITY VENOUS ULTRASOUND Ordering provider: Shae Nance, PROFESSOR OF FOOD BIOCHEMISTRY History: . LE SWELLING/LEG PAIN . Comparison: None. FINDINGS: --COMMON FEMORAL: Patent and free of thrombus. Normal compressibility, phasic flow and augmentation. --PROXIMAL SUPERFICIAL FEMORAL: Patent and free of thrombus. Normal compressibility, phasic flow and augmentation. --DISTAL SUPERFICIAL FEMORAL: Patent and free of thrombus. Normal compressibility, phasic flow and au gmentation. --POPLITEAL: Patent and free of thrombus. Normal compressibility, phasic flow and augmentation. --POSTERIOR TIBIAL: Patent and free of thrombus. Normal compressibility, phasic flow and augmentation . IMPRESSION: Negative right lower extremity venous US. No deep vein thrombosis. Reviewed, dictated and finalized at [facility].
[2023-09-08 15:14] LABS: Hematocrit 36.9 % (35.0-49.0); Hemoglobin 12.3 g/dL (12.0-15.0); Mean Corpuscular HGB Conc 33.3 g/dL (32-36); Mean Corpuscular Hemoglobin 27.5 pg (27.0-31.0); Mean Corpuscular Volume 82.6 fL (78.0-102.0); Mean Platelet Volume 8.9 fl (9.2-11.8); Platelet Count Result 330 K/mm3 (150-420); Red Blood Count 4.47 M/mm3 (4.20-5.40)
[2023-09-08 15:51] LABS: Anion Gap 7 mmol/L (4-12); Blood Urea Nitrogen 20 mg/dL (7-18); Calcium 9.1 mg/dL (8.5-10.1); Carbon Dioxide 27 mmol/L (21-32); Chloride 103 mmol/L (98-108); Estimated Glomerular Filt Rate > 60; Glucose 87 mg/dL (70-99); Osmolality Calculated 285 mOsm/kg (285-295); Potassium 4.4 mmol/L (3.5-5.1); Sodium 137 mmol/L (136-145)
== END 2023-09-08 14:09 | disposition home or self-care (01) ==
PROVIDERS: PCP Internal Medicine; Visit Provider Nurse Practitioner Family
DX: M79.89 Other specified soft tissue disorders (principal)
CPT/HCPCS: 36415; 80048; 85027; 93971

== ENCOUNTER 2023-09-10 12:30 | Outpatient (CLI) | payer OTHER, SELFPAY ==
--- NOTE | ~2023-09-10 | US_ITS ---
US arterial ankle brachial ind INDICATION: Leg swelling TECHNIQUE: Segmental pressures and plethysmographic and Doppler waveforms of the brachial and lower e xtremity arteries were obtained. COMPARISON: None. FINDINGS: Right and left brachial artery pressures of 109 mm Hg and 109 mm Hg, respectively, are concordant (no rmal difference <= 30 mmHg). The right ankle-brachial index (PRESTON) is 1.36 (normal >= 0.9-1.0). The right great toe-brachial index (TBI) is 0.96 (normal >= 0.60). The left PRESTON is 1.23. The left TBI is 0.78. IMPRESSION: 1. Normal bilateral ankle-brachial indices. Reviewed, dictated and finalized at location B.
== END 2023-09-10 12:31 | disposition home or self-care (01) ==
LOC: CHSIMG 12:31
PROVIDERS: PCP Internal Medicine; Visit Provider Nurse Practitioner Family
DX: M79.89 Other specified soft tissue disorders (principal); I73.9 Peripheral vascular disease, unspecified
CPT/HCPCS: 93922